=== PATIENT | female | born 1965 | race Caucasian/White ===

== ENCOUNTER 2022-10-14 15:00 | Outpatient (RCR) | payer OTHER, SELFPAY ==
--- NOTE | 2022-09-02 14:21 | HP.PTEVAL_ITS ---
Patient's Visit Information CALIXTO MOORE is a 56 year old F referred to Physical Therapy by Dr. Suze Hernandez MD with a diagnosis of Fibro, Hip Pain. Date of Evaluation: 09/02/22 Physical Therapist: Amber Zuniga DPT - Visit Plan Frequency: 2x /Week Duration: 4 Weeks Plan: Aquatic PT- focus on LE and core strength/stabilization- functional mobility of stairs and getting up/down from chairs/bed. HEP Given IE: Seated marching, HR/TR, LAQ- Standing HR/TR, marching, hip abd - Subjective Patient reports that she currently has stage 4 cancer with mets- this is her 5th cancer- she has had this for 3 years in Jan. She is taking a oral chemo daily- recurrence of uterine- 100% estrogen positive- so she also takes a hormone sophie. She does steroids 2-3 weeks then goes off for about 8 weeks then cycles back one- lots of weight gain. One of the biggest side effects is joint pain, stiffness, bone pain (femur). She has a lot of pain and tightness in her thighs daily and hips Left>right. The knees hurt on/off. She did have a stress fracture in her left hip last fall and she will have a scan for that at the end of August. She mostly has pain from her waist down. She feels that her knees fell puffy. She lives in single story home with 2 stairs to enter from the garage- no issues getting in/out. She does have a finished basement but she does not go down there anymore. Stairs are hard- going down is very much easier- coming back up is really hard due to weakness and SOB. Her mets are in both lungs and stomach lining. She uses her arms to get up/down from the chair- she will avoid chairs that she can't get back out of. Depending on how she is feeling is her activity level. She tries to do as much as she can. Worst: 8/10 mornings are the worst- pain and stiffness- they have an adjustable bed but she can't get out of it so she sleeps in the recliner. Agg: standing- she tries to walk everyday as least 20-30 min 2x a day outside. Eases: recliner and resting- she use to use her jacuzzi but she can't get out. She does like to be in warm showers. Best: 07/05. Describes her pain different if she is standing its more of a stabbing sharp in hip/low back- morning its achy and stiff. Does have intermittent N/T in her toes. No falls but does have some dizziness and LOB but that is from her first cancer- does not use an AD. Goals: improve tolerance and decrease pain. Is continent and bowel and bladder. 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 2020 Reoccurrence of uterine cancer with mets to lungs bilateral and peritoneum lining, HTN, depression, anxiety, blood clots. Meds: Cymbalta, losartan, potassium, HCTZ, zeralto, Synthroid, Xanax, Invega, DeltXR. - Objective Posture: FH, RS- can correct with cues but is unable to maintain. Gait: antalgic- wide base of support- no AD- shortened stride- decrease stance on the left LE. Stairs: asc: nonrecip with double rail desc: non recip and sideways with bilateral HR- reports SOB and unease on stairs. HR/TR: able 50% of each with UE A and reports discomfort. SLS: weight shift but unable to remove hands from wall without loss of balance. ROM: Lumbar: hands to knees- reports feeling nauseated- Exnt: neutral, SB and Rot: limited by 75%. Strength: Core: poor, Lef t: Hip: 4-/5, Knee: 4/5, Ankle: 4+/5, Right: Hip: 4/5, Knee: 4+/5, Ankle: 4+/5. Flex: HS: moderate, Gastroc: moderate. Transfers: sit to stand: uses UE A- when asked to get up without she puts both hands on her knees- pushes and then has to take a few steps to get herself under her and takes extra time to become fully standing - Balance/Special Test Scores Lower Extremity Functional Score: 9 - Goals Goal 1:: Patient will be I with HEP and progression Goal Time Frame: 4-6 Weeks Goal 2:: Patient will demo ability to sit to stand without UE Ax2 Goal Time Frame: 4-6 Weeks Goal 3:: Patient will maintain proper posture t/o tx session to demo increased core s/s Goal Time Frame: 4-6 Weeks Goal 4:: Patient will asc/desc 8 stairs recip with 2 HR straight Goal Time Frame: 4-6 Weeks Goal 5:: Patient will report ability to sleep in her bed for 3 consecutive nights Goal Time Frame: 4-6 Weeks Goal 6:: Patient will report 80% improvement Goal Time Frame: 4-6 Weeks - Rehabilitation Potential Physical Therapy Diagnosis: Patient presents with hypomobility- she has decreased LE and core strength/stabilization, flex, proprioception and muscular endurance leading to poor posture and decreased ability to participate in ADL's without pain Rehabilitation Potential: Good - Anticipated Interventions Patient/Client Instruction: Educate patient on: Benefits of Fitness Program Therapeutic Exercise to Include: Strength training, Endurance training, Balance training, Coordination, Agility training, Body mechanics, Postural training, Flexibilty training, Gait and locomotor training, Neuromotor development, In an aquatic setting, Dynamic Lumbar Stabilization, Scapular Strength/Stabilization For the Purpose of:: To improve muscle performance and motor function Thank you for the opportunity to evaluate your patient. For Medicare and Medicare HMO plans, please review the plan of care and approve it. It will need to be FAXED BACK to us at [phone] for Medicare purposes. For Medicare only, by signing this I certify the plan of care. Please let me know if there are questions or concerns regarding this plan of care. Physician Signature: Date:
--- NOTE | 2022-10-04 13:00 | HP.PTREVAL_ITS ---
Dr. Suze Hernandez MD, It has been my pleasure to treat JOHNSON MOORE over the last 3 visits for Fibro, Hip Pain. Please see the progress note below for an update on the physical therapy plan of care! Subjective: PATIENT REPORTS SHE IS HERE TO RESUME HER PRIOR PLANNED PT IN [place]. SHE REPORTS MISSING ALANNA'TS DUE TO COVID. PATIENT REPORTS THAT OVER-ALL SHE IS A LITTLE WORSE IN TERMS OF HER PAIN AND WEAKNESS SINCE HAVING HER INITIAL PT EVAL ABOUT 4 WKS AGO DUE TO HAVING COVID BUT DENIES ANY NEW PROBLEMS. PATIENT REPORTS THIS ISN'T NEW BUT IF SHE SITS VERY LONG THE PRESSURE IN MOST CHAIRS ON THE BACK OF HER THIGHS CAUSES HER HIPS AND THIGHS TO FEEL TIGHT AND HER LEGS TO GO NUMB. THE RECLINER IS BETTER. HAS TRIED BACK AND CHAIR CUSHIONS WITH LIMITED SUCCESS. PATIENT REPORTS COMPLIANCE WITH HEP. Objective/Function: PATIENT WAS SEEN TODAY FOR RE-ASSESSMENT OF PROGRESS TOWARD THE SET PT GOALS AND THE NEED FOR FURTHER PHYSICAL THERAPY VS READINESS FOR DISCHARGE. UPON EXAM TODAY THERE ARE NO SIGNIFICANT CHANGES SINCE INITIAL EVAL. PATIENT APPEARS APPROPRIATE TO RESUME PT PER ORIGINAL PLAN OF CARE AND SHE REPORTS SHE LIKES THE WATER EX AND IT HAS HELPED IN THE PAST. Plan Plan: 2X'S A WK X 5 WKS. Aquatic PT- focus on LE and core strength/stabilization- functional mobility of stairs and getting up/down from chairs/bed Balance/Gait/Functional tests - Balance/Special Test Scores Lower Extremity Functional Score: 9 Tug Test: 20-30sec.=variable mobility Goals Goal 1:: Patient will be I with HEP and progression Goal Time Frame: 4-6 Weeks Goal 2:: Patient will demo ability to sit to stand without UE Ax2 Goal Time Frame: 4-6 Weeks Goal 3:: Patient will maintain proper posture t/o tx session to demo increased core s/s Goal Time Frame: 4-6 Weeks Goal 4:: Patient will asc/desc 8 stairs recip with 2 HR straight Goal Time Frame: 4-6 Weeks Goal 5:: Patient will report ability to sleep in her bed for 3 consecutive nights Goal Time Frame: 4-6 Weeks Goal 6:: Patient will report 80% improvement Goal Time Frame: 4-6 Weeks Anticipated Interventions Patient/Client Instruction: Educate patient on: Benefits of Fitness Program Therapeutic Exercise to Include: Strength training, Endurance training, Balance training, Coordination, Agility training, Body mechanics, Postural training, Flexibilty training, Gait and locomotor training, Neuromotor development, In an aquatic setting, Dynamic Lumbar Stabilization, Scapular Strength/Stabilization For the Purpose of:: To improve muscle performance and motor function Please do not hesitate to contact me at [phone] by phone or Fax: if you have questions or concerns regarding this new plan of care! Sincerely, Erica Mary, PT, Cert MDT
--- NOTE | 2022-12-05 08:05 | HP.PT.NRP ---
Patient Information Patient Information: JOHNSON MOORE was seen in my office for initial evaluation on 09/02/22. The following Plan of Care was established for this patient: POC Established Initial Frequency: 2x /Week Initial Duration: 4 Weeks Anticipated Interventions Patient/Client Instruction: Educate patient on: Benefits of Fitness Program Therapeutic Exercise to Include: Strength training, Endurance training, Balance training, Coordination, Agility training, Body mechanics, Postural training, Flexibilty training, Gait and locomotor training, Neuromotor development, In an aquatic setting, Dynamic Lumbar Stabilization and Scapular Strength/Stabilization For the Purpose of:: To improve muscle performance and motor function Last Seen Last Seen: This patient was last seen in our office . Pertinent comments regarding their Physical therapy will appear below: Patient was last seen in September for PT with cancels due to being sick. She is appropriate to be discharged at this time and return to MD for further evaluation as needed. At this point I will be discontinuing this patient from physical therapy. I would be happy to see this patient again in the future if found appropriate by the physician. Thank you! Amber Zuniga DPT Balance/Gait/Functional tests Balance/Special Test Scores Lower Extremity Functional Score: 9 Tug Test: 20-30sec.=variable mobility
== END 2022-10-14 19:00 | disposition home or self-care (01) ==
LOC: PT 15:00
PROVIDERS: PCP Internal Medicine; Referring Provider Internal Medicine; Visit Provider Internal Medicine
DX: M79.7 Fibromyalgia (principal); M19.90 Unspecified osteoarthritis, unspecified site
CPT/HCPCS: 97110; 97113; 97162; 97164

== ENCOUNTER → 2023-01-08 | Outpatient (CLI) | payer OTHER, SELFPAY ==
--- NOTE | 2023-01-08 10:59 | VDLE_ITS ---
Reason For Study: LLE PAIN Procedure LEFT This is a venous duplex using B-mode, color GSV is normal. flow and spectral Doppler. CFV is compressible, spontaneous, phasic, Exam performed in department. competent, and demonstrates normal A preliminary report was called and/or faxed augmentation. to DR Hernandez @ [phone] @ 11:40 am. FV is compressible, spontaneous, phasic, competent and demonstrates normal augmentation. POP V is compressible, spontaneous, phasic, competent and demonstrates normal augmentation. T/P Trunk is compressible. PTV is compressible. LT PerV is compressible. VL/Venous Duplex US, Unilateral Interpretation Summary Deep veins of the left lower extremity are patent and compressible segmentally. There is no evidence of left lower extremity deep vein thrombosis. Valvular competence appears intac t within the proximal deep venous system on the left . The left great saphenous vein appears patent a nd compressible segmentally. Ordering Physician: Suze Hernandez Referring Physician: Suze Hernandez Performed By: Tori Nelson, RDCS, RVT
== END | disposition home or self-care (01) ==
LOC: CVS 10:57
PROVIDERS: PCP Internal Medicine; Referring Provider Internal Medicine; Visit Provider Internal Medicine
DX: M79.606 Pain in leg, unspecified (principal)
CPT/HCPCS: 93971

== ENCOUNTER 2023-02-10 16:30 | Outpatient (RCR) | payer OTHER, SELFPAY ==
--- NOTE | 2022-12-10 11:38 | HP.PTEVAL ---
Patient's Visit Information Visit Information Visit Information: JOHNSON MOORE is a 57 year old F referred to Physical Therapy by Dr. Suze Hernandez MD with a diagnosis of L chest wall pain. Date of Evaluation: 12/10/22 Physical Therapist: Margarito Sun, PT, ATC Visit Plan Frequency: 2x /Week Duration: 4 Weeks Plan: Aquatic therapy consisting of L shoulder stretching, B shoulder strengthening, and HEP Subjective Subjective: Pt reports she had a mastectomy performed in 2006 and notes she has had difficulty with [id number] objects ever since. Pt notes she recently had PT for hip and LBP which was very helpful, but she developed covid and had to stop. Pt reports she is feeling better now, but notes she is very limited with the activity she can perform secondary to B UE weakness. Pt reports her L UE pain is significantly more limited and painful than her R UE. Pt reports she has pain in her anterior chest region which occurs randomly. Pt reports some times it is a sharp pain, and other times it feels like a nerve pain. Pt reports occasional sleep difficulty at this time secondary to pain. Pt reports L UE numbness secondary to her surgeries. Pt reports she is limited with IADL's only with her L UE. 4/10 pain at rest, increases to 7/10 at worst. Pain L chest wall pain: Pain Intensity (Out of 10): 4 Pain Intensity Range: 7 Objective Objective: Neuro: L C5 dermatome is hyposensitive to light touch. All other B UE's sensation is WNL to light touch. ROM: L shoulder abduction and IR are severely limited. Flexion is minimally limited. All other B shoulder ROM is WNL MMT: R shoulder is grossly 4-/5 throughout while L shoulder is 3-/5 throughout Balance/Special Test Scores Oswestry Low Back Score: 27 Goals Goal 1:: Increase B shoulder strength x 1 grade to aid with IADL's Goal Time Frame: 4-6 Weeks Goal 2:: Increase L shoulder ROM to equal L shoulder ROM to aid with IADl's Goal Time Frame: 4-6 Weeks Goal 3:: I with HEP Goal Time Frame: 4-6 Weeks Rehabilitation Potential Physical Therapy Diagnosis: Pt has B UE weakness, limited L UE ROM, and difficulty with IADL's secondary to B chest wall surgery Rehabilitation Potential: Good Anticipated Interventions Patient/Client Instruction: Educate patient on: Condition and Plan of Care For the Purpose of:: To improve self management Therapeutic Exercise to Include: Strength training, Endurance training, Flexibilty training, In an aquatic setting, Active ROM and Scapular Strength/Stabilization For the Purpose of:: To decrease pain, To increase ROM and To improve muscle performance and motor function Text: Thank you for the opportunity to evaluate your patient. For Medicare and Medicare HMO plans, please review the plan of care and approve it. It will need to be FAXED BACK to us at [phone] for Medicare purposes. For Medicare only, by signing this I certify the plan of care. Please let me know if there are questions or concerns regarding this plan of care. Physician Signature: Date:
--- NOTE | 2023-02-10 17:04 | HP.PTDCSUM ---
Discharge Summary D/C summary: It has been my pleasure to treat JOHNSON MOORE referred by Dr. Suze Hernandez MD, with the diagnosis of L chest wall pain for a total of 9 visit(s). Discharge Date: Please see the following information for a summary of their discharge status. Subjective Subjective: Pt reports she is better, but is scheduled for eye surgery in the near future and wants to hold PT for now Pain L chest wall pain: Pain Intensity (Out of 10): 0 Whole body: Pain Intensity (Out of 10): 6 Overall Improvement % Improvement: 50 Objective Objective/Function: L shoulder ROM: flex= 115 deg, Abd= 90 deg, ER= 55 deg, IR= WNL L Shoulder strength: 4/5 throughout Pt is I with [facility] Goals Goal 1:: Increase B shoulder strength x 1 grade to aid with IADL's Goal Progress: Goal Met Goal 2:: Increase L shoulder ROM to equal R shoulder ROM to aid with IADl's Goal Progress: Progressing Goal 3:: I with HEP Goal Progress: Goal Met Plan Plan: Discharge to [facility] D/C Information d/c sentence: If there are questions or concerns regarding this patient's physical therapy, please feel free to call me at [phone]. Thank you for the referral of this patient. Sincerely, Margarito Sun, PT, ATC Balance/Gait/Functional tests Balance/Special Test Scores Oswestry Low Back Score: 27 Quick DASH Score: 31.8175 Improvement % Improvement: 50
== END 2023-02-10 19:00 | disposition home or self-care (01) ==
LOC: PT 16:30
PROVIDERS: PCP Internal Medicine; Referring Provider Internal Medicine; Visit Provider Internal Medicine
DX: R07.89 Other chest pain (principal); M54.50 Low back pain, unspecified
CPT/HCPCS: 97113; 97161; 97164

== ENCOUNTER 2023-02-26 14:00 | Outpatient (RCR) | payer OTHER, SELFPAY ==
--- NOTE | 2023-02-25 09:29 | HP.PTEVAL_ITS ---
Patient's Visit Information Visit Information Visit Information: JOHNSON MOORE is a 57 year old F referred to Physical Therapy by Dr. Suze Hernandez MD with a diagnosis of L hip pain. Date of Evaluation: 02/25/23 Physical Therapist: Margarito Sun, PT, ATC Visit Plan Frequency: 2-3x /Week Duration: 4-6 Weeks Plan: Aquatic therapy consisting of L LE strengthening and stretching, core stab ex's, postural education, and HEP Subjective Subjective: Pt reports she is being treated for cancer at this time. Pt reports she has developed osteopenia as a result of her treatments. Pt notes this had lead her to develop a stress fracture of her L hip which was diagnosed in 04/2020. Pt reports she has had PT for this condition twice a year for the past few years. Pt notes the aquatic therapy she takes for this condition always helps, but the pain returns. Pt notes she had a bone scan 3 mos ago which revealed there is still a hair line fracture present. Pt reports prolonged standing and walking increases her pain. Pt reports increased pain in both thighs when she sits for a long period of time. Pt reports sleep difficulty at this time secondary to pain. Pt has stairs at home that she avoids secondary to the difficulty she has trying to negotiate them. 7/10 pain at rest, 10/10 pain at worst. Pain L hip: Pain Intensity (Out of 10): 7 Pain Intensity Range: 10 Objective Objective: Neuro: B LE sensation is WNL to light touch. B patellar reflex= 2/3 MMT: R LE is grossly 4/5 throughout. L LE is grossly 3+/5 throughout ROM: B LE's are WFL when compared bilaterally. Pt is moderately limited with L/S ext ROM. Gait: Pt is able to ambulate 120 feet until needing to rest secondary to pain in L hip and foot. Balance/Special Test Scores Lower Extremity Functional Score: 17 Goals Goal 1:: Decrease L hip pain x 50% to aid with sleep Goal Time Frame: 4-6 Weeks Goal 2:: Increase L LE strength x 1 grade to aid with stair negotiation Goal Time Frame: 4-6 Weeks Goal 3:: Pt will be able to ambulate 300 feet to aid with community ambulation Goal Time Frame: 4-6 Weeks Goal 4:: I with HEP Goal Time Frame: 4-6 Weeks Rehabilitation Potential Physical Therapy Diagnosis: Pt has L hip pain, weakness, and intolerance prolonged ambulation secondary to L hip stress fracture Rehabilitation Potential: Good Anticipated Interventions Patient/Client Instruction: Educate patient on: Condition and Plan of Care For the Purpose of:: To improve self management Therapeutic Exercise to Include: Strength training, Flexibilty training, In an aquatic setting, Active ROM and Dynamic Lumbar Stabilization For the Purpose of:: To decrease pain and To improve muscle performance and motor function Text: Thank you for the opportunity to evaluate your patient. For Medicare and Medicare HMO plans, please review the plan of care and approve it. It will need to be FAXED BACK to us at [phone] for Medicare purposes. For Medicare only, by signing this I certify the plan of care. Please let me know if there are questions or concerns regarding this plan of care. Physician Kaelyn dhillon: Date:
--- NOTE | 2023-05-06 08:36 | HP.PT.NRP ---
Patient Information Patient Information: JOHNSON MOORE was seen in my office for initial evaluation on 02/25/23. The following Plan of Care was established for this patient: POC Established Initial Frequency: 2-3x /Week Initial Duration: 4-6 Weeks Anticipated Interventions Patient/Client Instruction: Educate patient on: Condition and Plan of Care For the Purpose of:: To improve self management Therapeutic Exercise to Include: Strength training, Flexibilty training, In an aquatic setting, Active ROM and Dynamic Lumbar Stabilization For the Purpose of:: To decrease pain and To improve muscle performance and motor function Last Seen Last Seen: This patient was last seen in our office . Pertinent comments regarding their Physical therapy will appear below: Pt was treated for L hip pain for 2 visits through the date of 02/26/23. Pt has not returned through todays date and is discontinued at this time. At this point I will be discontinuing this patient from physical therapy. I would be happy to see this patient again in the future if found appropriate by the physician. Thank you! Margarito Sun, PT, ATC Balance/Gait/Functional tests Balance/Special Test Scores Lower Extremity Functional Score: 17
== END 2023-02-26 19:00 | disposition home or self-care (01) ==
LOC: PT 14:00
PROVIDERS: PCP Internal Medicine; Referring Provider Internal Medicine; Visit Provider Internal Medicine
DX: M25.552 Pain in left hip (principal)
CPT/HCPCS: 97113; 97161

== ENCOUNTER → 2023-07-11 | Outpatient (CLI) | payer OTHER, SELFPAY ==
--- NOTE | 2023-07-11 16:05 | RAD_ITS ---
INDICATION: right foot and ankle pain -- STAT please call wet read to Dr. Hernandez EXAMINATION/TECHNIQUE: X-RAY - RIGHT XR Ankle Min 3 Views COMPARISON: None. FINDINGS: No acute fracture or malalignment. No blastic or lytic lesions. No degenerative changes are seen. The soft tissues are unremarkable. Plantar calcaneal enthesophyte. RAD/Ankle min 3 Views IMPRESSION: No acute radiographic abnormalities. Plantar heel spur. Electronically Signed: Alhaji Jones MD at 16:39 EST ,
--- NOTE | 2023-07-11 16:05 | RAD_ITS ---
INDICATION: right foot and ankle pain -- stat-please call wet read to Dr. Hernandez EXAMINATION/TECHNIQUE: X-RAY - RIGHT XR Foot Min 3 Views COMPARISON: None. FINDINGS: No acute fracture or malalignment. No blastic or lytic lesions. Mild scattered degenerative changes. The soft tissues are unremarkable. RAD/Foot min 3 Views IMPRESSION: No acute radiographic abnormalities. Electronically Signed: Alhaji Jones MD at 16:38 EST ,
== END | disposition home or self-care (01) ==
LOC: RAD 16:01
PROVIDERS: PCP Internal Medicine; Referring Provider Internal Medicine; Visit Provider Internal Medicine
DX: M25.571 Pain in right ankle and joints of right foot (principal)
CPT/HCPCS: 73610; 73630

== ENCOUNTER 2023-07-25 14:00 | Outpatient (RCR) | payer OTHER, SELFPAY ==
--- NOTE | 2023-07-03 13:32 | HP.PTCOM ---
PT Communication Note 07/03/[address] Suze Hernandez MD , Thank you for referring Gómez Roe for [employer] balance assessment. I have enclosed a copy for you review of her results. In summary, she score poorly on the Modified CTSIB test losing her balance often in the eyes closed portion. She seems to lose balance backwards as well as to the right. She also scored poorly on the Limits of Stability Test particularly in the backwards weight shifting direction as she has a preference to weight through the front of her feet. her physical exam showed a great deal of weakness in bilateral ankles and possibly some coordination deficits consistent with neuropathy of unknown origin. With these results in mind, the plan is to continue POC emphasizing somatosensory balance exercises, ankle strength and weight shifting to complement her general exercises until independent. If there are questions regarding her physical therapy, please feel free to contact me. Thank you for this referral. Sincerely, ROB KimballT, OCS, CSCS Contact Information
--- NOTE | 2023-07-25 14:56 | HP.PTREVAL ---
Re-Evaluation Intro: Dr. Suze Hernandez MD, It has been my pleasure to treat JOHNSON MOORE over the last 9 visits for [place]. Please see the progress note below for an update on the physical therapy plan of care! Subjective Subjective: Ankle still pretty painful. Outside of R ankle. It is not improving. hard to walk on it 02/02. x ray of foot and ankle was fine. Will see Dr. Mojica 08/04. Unable to walk far at home due to pain. Objective Objective/Function: slow and painful AROM R ankle. Tender to touch lateral peroneus and lateral ligaments all without mechanism of injury. Walks with cane I with short L step length. Antalgic on R. painful to all contractions of R ankle in lateral foot. Plan Plan Plan: ankle pain limiting any treatment to her current POC. Recommend hold until sees foot doctor and gets that taken care of then we can recheck her and reinitiate previous POC which has been a no start for the most part. previous POC : Please ensure patient has home theraband strength for ankle, weight shifting exercises posterior especially, head movement balance exercises with narrowing REJI with pics for HEP over the next 4 visits. Verbally emphasize general fitness, pool, HEP *OSTEOPOROSIS. L HIP STRESS FX WITH POSSIBLE HAIRLINE FX STILL PRESENT* -BIODEX BALANCE ASSESSMENT TEST -BALANCE EXERCISES, PROPRIOCEPTION TRAINING, ANKLE STRENGTHENING, FW & BW WT. SHIFT EFFICIENCY TRAINING, FUNCTIONAL VESTIBULAR HEAD MVMT ACTIVITIES AND NARROW REJI ACTIVITIES CHALLENGING BALANCE IN A SAFE MANNER. Balance/Gait/Functional tests Balance/Special Test Scores Functional Gait Assessment Score: 21 % Disability: 30.0000 Lower Extremity Functional Score: 4 Goals Goals Goal 1:: PATIENT WILL BE ABLE TO AMBULATE INDEP'LY AND SAFELY ON LEVEL SURFACES WITH LEAST ASSISTIVE DEVICE X AT LEAST 500 FEET WITHOUT LOSS OF BALANCE. Goal Time Frame: 6-8 Weeks Goal Progress: Not Progressing Goal 2:: PATIENT WILL COMPLETE 6 STANDS WITH ONE UE ASSIST IN 30 SECS TO DEMONSTRATE IMPROVED FUNCTIONAL STRENGTH Goal Time Frame: 6-8 Weeks Goal Progress: Not Progressing Goal 3:: PATIENT WILL COMPLETE TUG IN < 25 SECS WITH LEAST ASSISTIVE DEVICE TO DEMONSTRATE IMPROVED GAIT STABILITY Goal Time Frame: 6-8 Weeks Goal Progress: Not Progressing Goal 4:: PATIENT WILL BE ABLE TO ASCEND AND DESCEND ONE FLIGHT OF STEPS WITH STEP TO PATTERN AND ONE HR PLUS CANE SAFELY Goal Time Frame: 6-8 Weeks Goal Progress: Not Progressing Goal 5:: PATIENT WILL BE INDEP WITH A HEP FOR CONTINUED IMPROVEMENT ONCE FORMAL PHYSICAL THERAPY CONCLUDES. Goal Time Frame: 6-8 Weeks Goal Progress: Not Progressing Anticipated Interventions Anticipated Interventions Patient/Client Instruction: Educate patient on: Condition, Plan of Care and Risk Factors For the Purpose of:: To improve self management Therapeutic Exercise to Include: Strength training, Balance training, Gait and locomotor training and Neuromotor development For the Purpose of:: To improve muscle performance and motor function, To increase tolerance to activity/condition/position, To improve ability of physical actions for home/community/work/leisure, To improve gait and locomotor functions, To improve balance, To improve safety and To improve ability to perform tasks related to life management Re-Evaluation Ending Re-evaluation ending: Please do not hesitate to contact me at [phone] by phone or if you have questions or concerns regarding this new plan of care! Sincerely, Lincoln Loera, DPT, OCS, CSCS
--- NOTE | 2023-11-11 18:09 | HP.PT.NRP ---
Patient Information Patient Information: JOHNSON MOORE was seen in my office for initial evaluation on 06/20/23. The following Plan of Care was established for this patient: POC Established Initial Frequency: 2-3x /Week Initial Duration: 2 Months Anticipated Interventions Patient/Client Instruction: Educate patient on: Condition, Plan of Care and Risk Factors For the Purpose of:: To improve self management Therapeutic Exercise to Include: Strength training, Balance training, Gait and locomotor training and Neuromotor development For the Purpose of:: To improve muscle performance and motor function, To increase tolerance to activity/condition/position, To improve ability of physical actions for home/community/work/leisure, To improve gait and locomotor functions, To improve balance, To improve safety and To improve ability to perform tasks related to life management Last Seen Last Seen: This patient was last seen in our office 07/25/23. Pertinent comments regarding their Physical therapy will appear below: Pt seen 9 visits of POC but was limited by ankle pain at the end. She was to see her foot doctor an contact us if/when she was returning. at this point, it has been over 3 months and I will discontinue her from my care but would be happy to see her again if found appropriate by physician. At this point I will be discontinuing this patient from physical therapy. I would be happy to see this patient again in the future if found appropriate by the physician. Thank you! Lincoln Loera, DPT, OCS, CSCS Balance/Gait/Functional tests Balance/Special Test Scores Functional Gait Assessment Score: 21 % Disability: 30.0000 Lower Extremity Functional Score: 4
== END 2023-07-25 19:00 | disposition home or self-care (01) ==
LOC: PT 14:00
PROVIDERS: PCP Internal Medicine; Referring Provider Internal Medicine; Visit Provider Internal Medicine
DX: R29.6 Repeated falls (principal); Z91.81 History of falling
CPT/HCPCS: 97014; 97035; 97110; 97116; 97140; 97162; 97530; 97750; G0283

== ENCOUNTER → 2024-04-26 | Outpatient (CLI) | payer OTHER, SELFPAY ==
--- NOTE | 2024-04-26 12:40 | VDLE_ITS ---
Reason For Study: Left leg swelling Procedure LEFT This is a venous duplex using B-mode, color GSV is normal. flow and spectral Doppler. CFV is compressible, spontaneous, phasic, Exam performed in department. competent, and demonstrates normal Technically difficult due to edema from fall augmentation. on knee. FV is compressible, spontaneous, phasic, A preliminary report was called and/or faxed competent and demonstrates normal to Dr. Hernandez. augmentation. FV distal not visualized due to edema. POP V is compressible, spontaneous, phasic, competent and demonstrates normal augmentation. T/P Trunk is compressible. PTV is compressible. LT PerV is compressible. VL/Venous Duplex US, Unilateral Interpretation Summary Deep veins of the left lower extremity are patent and compressible segmentally. There is no evidence of left lower extremity deep vein thrombosis. Valvular competence appears intac t within the proximal deep venous system on the left . The left great saphenous vein appears patent a nd compressible segmentally. The distal left femoral vein was not visualized due to the presenc e of edema. Ordering Physician: Suze Hernandez Referring Physician: Suze Hernandez Performed By: Yaquelin Perez RVT
== END | disposition home or self-care (01) ==
PROVIDERS: PCP Internal Medicine; Referring Provider Internal Medicine; Visit Provider Internal Medicine
DX: M79.89 Other specified soft tissue disorders (principal)
CPT/HCPCS: 93971

== ENCOUNTER 2024-04-28 12:32 | Outpatient (CLI) | payer OTHER, SELFPAY ==
[2024-04-28 12:45] VITALS: BP 140/73; PULSE 90; RESP 16; TEMP 36.3; O2SAT 93; BMI 46.0
[2024-04-28] MEDS: 0.9% NaCl Peripheral Flush Adult/Peds IV ×2 (12:55→14:19)
[2024-04-28] MEDS: Ceftriaxone 2 GM in 0.9% Normal Saline (50mL MB+) 50 ML IV (13:04)
[2024-04-28] MEDS: 0.9% NaCl IVPB Med Flush (250 mL) 15 ML IV (13:07)
[2024-04-28 14:21] VITALS: BP 127/73; PULSE 75; RESP 16; TEMP 36.7; O2SAT 92
== END 2024-04-28 23:59 | disposition home or self-care (01) ==
LOC: MEDOUTP 12:32
PROVIDERS: PCP Internal Medicine; Referring Provider Internal Medicine; Visit Provider Internal Medicine
DX: L03.90 Cellulitis, unspecified (principal)
CPT/HCPCS: 96365; A4216; J0696

== ENCOUNTER 2024-04-29 12:36 | Outpatient (CLI) | payer OTHER, SELFPAY ==
[2024-04-29] MEDS: 0.9% NaCl IVPB Med Flush (250 mL) 15 ML IV (12:54)
[2024-04-29] MEDS: Ceftriaxone 2 GM in 0.9% Normal Saline (50mL Bag) 50 ML IV (12:55)
[2024-04-29 12:56] VITALS: BP 140/73; PULSE 77; RESP 16; TEMP 36.6; O2SAT 93; BMI 45.1
[2024-04-29 14:00] VITALS: BP 123/64; PULSE 72; RESP 16; TEMP 36.6; O2SAT 94
== END 2024-04-29 23:59 | disposition home or self-care (01) ==
LOC: MEDOUTP 12:37
PROVIDERS: PCP Internal Medicine; Referring Provider Internal Medicine; Visit Provider Internal Medicine
DX: L03.90 Cellulitis, unspecified (principal)
CPT/HCPCS: 96365; J0696

== ENCOUNTER → 2024-04-30 | Outpatient (CLI) | payer OTHER, SELFPAY ==
[2024-04-30 16:08] LABS: Absolute Lymphocyte Count 2.42 X10^3/uL (0.83-4.51); Absolute Neutrophil Count 5.5 X10^3/uL (2.0-7.7); Basophil# 0.08 X10^3/uL; Basophil% 0.9 % (0-1); Eosinophil# 0.12 X10^3/uL; Eosinophils% 1.3 % (0-5); Hematocrit 38.3 % (37-47); Hemoglobin 12.2 g/dL (12.0-15.0); Lymphocyte # 2.42 X10^3/ul (0.83-4.51); Lymphocyte % 26.7 % (19-41); Mean Corp Hgb Conc 31.9 g/dL (32-36); Mean Corpuscular Hgb 29.5 pg (27.0-32.0); Mean Corpuscular Volume 92.7 fL (81-99); Mean Platelet Vol. 9.2 fl (6.2-12.0); Monocyte# 0.81 X10^3/uL; Monocyte% 8.9 % (0-10); NRBC Flagged by Analyzer 0 % (0-5); Neutrophil # 5.54 X10^3/uL (2.7-7.7); Platelet Count 358 K/mm3 (150-450); RBC Distribution Width CV 13.8 % (11.6-14.6); Red Blood Count 4.13 M/mm3 (4.2-5.4); White Blood Count 9.1 K/mm3 (4.4-11.0)
[2024-04-30 16:15] LABS: Erythrocyte Sedimentation Rate 16 mm/hr (0-30)
--- NOTE | 2024-04-30 16:25 | CT_ITS ---
CT LEFT LOWER EXTREMITY WITH 3-D IMAGING CLINICAL INDICATION: Contusion of left lower leg, sequela TECHNIQUE: Axial CT images of the LEFT lower extremity was performed IV contrast material. Coronal and sagittal reformats were provided. The protocol utilizes one or more of the following dose reduction techniques: automated exposure control, adjustment of mA and/or kV according to patient size,and/or use of iterative reconstruction technique. RADIATION DOSAGE (If Supplied By Facility): CTDIvol = ( 15.76 ) mGy, DLP = ( 1332.21 ) mGycm COMPARISON: FINDINGS: Osseous structures are normal without evidence of fracture or dislocation. No lytic or blastic osseous masses. Prepatellar hematoma measuring 6.6 x 2.4 x 13 cm. Subcutaneous edema at the distal lower leg and ankle. CT/Extremity Lower without Contra IMPRESSION: Prepatellar hematoma. Electronically Signed: Bryan Wood DO at 18:18 EST Reading Location ID and State: [facility] / [place] Tel [phone], Service support ,
== END | disposition home or self-care (01) ==
PROVIDERS: PCP Internal Medicine; Referring Provider Internal Medicine; Visit Provider Internal Medicine
DX: S80.12XS Contusion of left lower leg, sequela (principal)
CPT/HCPCS: 36415; 73700; 85025; 85652